=== PATIENT | male | born 1935 | race African-American/Black ===

== ENCOUNTER → 2017-03-20 | Outpatient (CLI) | payer MEDICARE | END | disposition home or self-care (01) | LOC: ROC 08:52 | PROVIDERS: ATTEND Radiology Radiation Oncology | DX: C61 Malignant neoplasm of prostate (principal) | CPT/HCPCS: 99212; G0463 ==

== ENCOUNTER → 2018-03-23 | Outpatient (CLI) | payer MEDICARE | END | disposition home or self-care (01) | LOC: ROC 13:54 | PROVIDERS: ATTEND Radiology Radiation Oncology | DX: Z08 Encounter for follow-up examination after completed treatment for malignant neoplasm (principal); C61 Malignant neoplasm of prostate | CPT/HCPCS: 99212; G0463 ==